=== PATIENT | male | born 1950 | race African-American/Black ===

== ENCOUNTER 2020-10-26 04:58 | Inpatient (IN) ==
[2020-10-26] MEDS ORDERED: Naloxone 0.4 MG/ML INJ IVP PRN (09:41)
[2020-10-26] MEDS ORDERED: *HR* Dextrose 50 % in Water (Vial) 50 ML VIAL IVP PRN (09:45)
[2020-10-26] MEDS ORDERED: Dextrose Gel 15 GM/37.5 ML TUBE PO PRN ×2 (09:45)
[2020-10-26] MEDS ORDERED: D5% in Water 1,000 ML IVC PRN (09:45)
[2020-10-26 10:51] LABS: Eosinophils % 0.4 %
[2020-10-26 10:53] LABS: Hematocrit 16.5 % (37.5-50.1); Lymphocytes # 0.7 K/mcL (0.6-4.6); Lymphocytes % 13.5 %; Mean Corpuscular HGB Conc 31.5 g/dL (31.6-35.5); Mean Corpuscular Hemoglobin 23.1 pg (28.0-33.3); Mean Corpuscular Volume 73.3 fL (83.0-100.0); Mean Platelet Volume 8.7 fL (9.4-12.4); Monocytes # 0.4 K/mcL (0.0-1.3); Monocytes % 7.1 %; Neutrophils # 4.2 K/mcL (1.6-8.9); Nucleated Red Blood Cells 0.9 /100 WBC (0); Platelet Count 141 K/mcL (140-400); Red Blood Count 2.25 M/mcL (4.19-5.50); Red Cell Distribution Width 24.6 % (11.5-14.5); White Blood Count 5.5 K/mcL (4.3-11.1)
[2020-10-26 11:05] LABS: Hemoglobin 5.2 g/dL (12.9-16.9)
[2020-10-26 11:09] LABS: Calcium 7.9 mg/dL (8.6-10.3); Potassium 3.6 mEq/L (3.5-5.1)
[2020-10-26 11:13] LABS: Anisocytosis 2+ (Not Present); Hypochromasia Present (Not Present); Microcytosis Present (Not Present); Platelet Estimate Normal (Normal)
[2020-10-26 11:14] LABS: Poikilocytosis 1+ (Not Present)
[2020-10-26] MEDS: *HR* OxyCODONE Immed Rel 5 MG TABLET PO PRN ×2 (11:34→20:10)
[2020-10-26] MEDS: Insulin LISPRO 300 UNITS/3 ML VIAL SUBQ SCH ×3 (12:33→21:28)
[2020-10-26] MEDS: Nicotine 21 MG PATCH.TD24 TD SCH (13:16)
[2020-10-26 13:51] LABS: Immature Reticulocyte % 30.1 % (11.0-38.0); Retculocyte # 0.02 M/mcL (0.05-0.10); Reticulocyte % 0.8 % (1.6-2.8)
[2020-10-26 14:11] LABS: % Iron Saturation 32 % (20-55); Iron 39 mcg/dL (65-175); Lactate Dehydrogenase 298 Units/L (140-271); Transferrin 86 mg/dL (203-362)
[2020-10-26 14:31] LABS: Ferritin > 1500 ng/mL (20-250)
[2020-10-26 14:34] LABS: Folate 5.2 ng/mL (3.0-16.0)
[2020-10-26] MEDS ORDERED: Cyanocobalamin (B-12) 1,000 MCG/ML VIAL IM ONE (18:12)
[2020-10-26 19:13] LABS: Albumin 3.3 g/dL (3.5-5.7); Bilirubin,Direct 0.5 mg/dL (0.0-0.2); Bilirubin,Indirect 0.6 mg/dL (0.0-1.0); Bilirubin,Total 1.1 mg/dL (0.3-1.0); Globulin 3.4 g/dL (2.4-3.5); Total Protein 6.7 g/dL (6.4-8.9)
[2020-10-27] MEDS: *HR* OxyCODONE Immed Rel 5 MG TABLET PO PRN ×2 (02:10→17:18)
[2020-10-27 03:25] LABS: Basophils % 0.2 %; Eosinophils % 0.6 %; Hematocrit 21.1 % (37.5-50.1); Immature Granulocytes % 1.6 % (0-4); Lymphocytes # 0.7 K/mcL (0.6-4.6); Lymphocytes % 14.1 %; Mean Corpuscular HGB Conc 32.2 g/dL (31.6-35.5); Mean Corpuscular Hemoglobin 24.7 pg (28.0-33.3); Mean Corpuscular Volume 76.7 fL (83.0-100.0); Mean Platelet Volume 8.8 fL (9.4-12.4); Monocytes # 0.4 K/mcL (0.0-1.3); Monocytes % 7.2 %; Neutrophils # 3.9 K/mcL (1.6-8.9); Nucleated Red Blood Cells 1.6 /100 WBC (0); Platelet Count 126 K/mcL (140-400); Red Blood Count 2.75 M/mcL (4.19-5.50); Red Cell Distribution Width 23.7 % (11.5-14.5); Segmented Neutrophils % 76.3 %; White Blood Count 5.1 K/mcL (4.3-11.1)
[2020-10-27 03:44] LABS: BUN/Creatinine Ratio 25 (6-26); Blood Urea Nitrogen 32 mg/dL (8-23); Calcium 7.7 mg/dL (8.6-10.3); Carbon Dioxide 16 mEq/L (23-29); Chloride 108 mEq/L (98-107); Glucose 83 mg/dL (70-105); Osmolality,Calculated 286 (280-300); Potassium 3.6 mEq/L (3.5-5.1); Sodium 135 mEq/L (136-145); eGFR For African Americans > 60 (> 60); eGFR For Non-African Americans 54 (> 60)
[2020-10-27 03:45] LABS: Hemoglobin 6.8 g/dL (12.9-16.9)
[2020-10-27 04:13] LABS: Anisocytosis 1+ (Not Present); Large Platelets Present (Not Present); Platelet Estimate Slight Decrease (Normal); Poikilocytosis 1+ (Not Present)
[2020-10-27 05:31] LABS: Adenovirus Not Detected (Not Detect); Bordetella Pertussis Not Detected (Not Detect); Chlamydophila pneumoniae Not Detected (Not Detect); Coronavirus 229E Not Detected (Not Detect); Coronavirus HKU1 Not Detected (Not Detect); Coronavirus NL63 Not Detected (Not Detect); Coronavirus OC43 Not Detected (Not Detect); Human Metapneumovirus Not Detected (Not Detect); Human Rhinovirus/Enterovirus Not Detected (Not Detect); Influenza A Subtype 2009 H1 Not Detected (Not Detect); Influenza B Not Detected (Not Detect); Mycoplasma pneumoniae Not Detected (Not Detect); Parainfluenza Virus 1 Not Detected (Not Detect); Parainfluenza Virus 2 Not Detected (Not Detect); Parainfluenza Virus 3 Not Detected (Not Detect); Parainfluenza Virus 4 Not Detected (Not Detect); Respiratory Syncytial Virus Not Detected (Not Detect); SARS-CoV-2 Not Detected (Not Detect)
[2020-10-27] MEDS: Insulin LISPRO 300 UNITS/3 ML VIAL SUBQ SCH ×4 (07:39→21:33)
[2020-10-27] MEDS ORDERED: 0.9 % Sodium Chloride 250 ML ONE (09:44)
[2020-10-27] MEDS: Nicotine 21 MG PATCH.TD24 TD SCH (09:47)
[2020-10-27] MEDS: Pantoprazole 40 MG VIAL IVP SCH ×2 (09:47→17:01)
[2020-10-27] MEDS ORDERED: Isovue-370 500 ML BOTTLE IVP ONE (11:11)
[2020-10-27] MEDS ORDERED: *HR* Vasopressin 20 UNIT/ML VIAL ONE (15:01)
[2020-10-27 15:14] LABS: Hematocrit 23.3 % (37.5-50.1); Hemoglobin 7.4 g/dL (12.9-16.9)
[2020-10-27 15:19] LABS: INR 1.5
[2020-10-27 15:21] LABS: Activated Partial Thrombo Time 28.5 Seconds (26.0-36.0)
[2020-10-27] MEDS: Cyanocobalamin (B-12) 1,000 MCG/ML VIAL IM SCH (15:57)
[2020-10-27] MEDS ORDERED: *HR* OxyCODONE Immed Rel 5 MG TABLET PO ONE (20:23)
[2020-10-28] MEDS: *HR* OxyCODONE Immed Rel 5 MG TABLET PO PRN ×3 (03:01→19:56)
[2020-10-28 04:26] LABS: Basophils % 0.2 %; Eosinophils % 0.8 %; Hematocrit 22.8 % (37.5-50.1); Hemoglobin 7.4 g/dL (12.9-16.9); Immature Granulocytes % 1.8 % (0-4); Lymphocytes # 0.6 K/mcL (0.6-4.6); Lymphocytes % 11.4 %; Mean Corpuscular HGB Conc 32.5 g/dL (31.6-35.5); Mean Corpuscular Hemoglobin 25.2 pg (28.0-33.3); Mean Corpuscular Volume 77.6 fL (83.0-100.0); Mean Platelet Volume 8.5 fL (9.4-12.4); Monocytes # 0.3 K/mcL (0.0-1.3); Monocytes % 6.8 %; Platelet Count 110 K/mcL (140-400); Red Blood Count 2.94 M/mcL (4.19-5.50); Red Cell Distribution Width 23.3 % (11.5-14.5)
[2020-10-28 04:32] LABS: Anisocytosis 1+ (Not Present); Platelet Estimate Decreased (Normal)
[2020-10-28 04:44] LABS: BUN/Creatinine Ratio 24 (6-26); Blood Urea Nitrogen 20 mg/dL (8-23); Calcium 7.7 mg/dL (8.6-10.3); Carbon Dioxide 16 mEq/L (23-29); Chloride 107 mEq/L (98-107); Glucose 171 mg/dL (70-105); Magnesium 2.7 mg/dL (1.6-2.6); Osmolality,Calculated 287 (280-300); Phosphorous 1.5 mg/dL (2.7-4.5); Potassium 3.6 mEq/L (3.5-5.1); Sodium 135 mEq/L (136-145); eGFR For African Americans > 60 (> 60); eGFR For Non-African Americans > 60 (> 60)
[2020-10-28] MEDS: Pantoprazole 40 MG VIAL IVP SCH ×2 (06:14→17:36)
[2020-10-28] MEDS: Insulin LISPRO 300 UNITS/3 ML VIAL SUBQ SCH ×4 (08:36→22:55)
[2020-10-28] MEDS ORDERED: Potassium Phosphate 44 MEQ in 0.9 % Sodium Chloride 250 ML IVPB ONE (08:52)
[2020-10-28] MEDS: Nicotine 21 MG PATCH.TD24 TD SCH (09:23)
[2020-10-28] MEDS: Iron Sucrose Complex 400 MG in 0.9 % Sodium Chloride 250 ML IVPB SCH (09:34)
[2020-10-28] MEDS ORDERED: *HR* OxyCODONE Immed Rel 5 MG TABLET PO PRN (13:13)
[2020-10-28] MEDS ORDERED: Lidocaine -MPF 2% 2 ML VIAL ONE (14:25)
[2020-10-28] MEDS: Cyanocobalamin (B-12) 1,000 MCG/ML VIAL IM SCH (17:29)
[2020-10-29 04:33] LABS: Hematocrit 23.1 % (37.5-50.1); Hemoglobin 7.4 g/dL (12.9-16.9); Platelet Count 119 K/mcL (140-400); Red Blood Count 2.96 M/mcL (4.19-5.50); Red Cell Distribution Width 23.3 % (11.5-14.5); White Blood Count 4.8 K/mcL (4.3-11.1)
[2020-10-29 04:43] LABS: BUN/Creatinine Ratio 20 (6-26); Blood Urea Nitrogen 16 mg/dL (8-23); Calcium 7.2 mg/dL (8.6-10.3); Carbon Dioxide 19 mEq/L (23-29); Chloride 110 mEq/L (98-107); Glucose 147 mg/dL (70-105); Osmolality,Calculated 292 (280-300); Phosphorous 1.7 mg/dL (2.7-4.5); Potassium 3.6 mEq/L (3.5-5.1); Sodium 139 mEq/L (136-145); eGFR For African Americans > 60 (> 60); eGFR For Non-African Americans > 60 (> 60)
[2020-10-29] MEDS: Pantoprazole 40 MG VIAL IVP SCH (05:00)
[2020-10-29 06:36] VITALS: BP 124/74
[2020-10-29] MEDS: Insulin LISPRO 300 UNITS/3 ML VIAL SUBQ SCH ×2 (07:42→11:48)
[2020-10-29] MEDS: Nicotine 21 MG PATCH.TD24 TD SCH (07:49)
[2020-10-29] MEDS: Iron Sucrose Complex 400 MG in 0.9 % Sodium Chloride 250 ML IVPB SCH (07:54)
[2020-10-29] MEDS ORDERED: Potassium Phosphate 44 MEQ in 0.9 % Sodium Chloride 250 ML IVPB ONE (08:14)
[2020-10-29] MEDS ORDERED: lisinopriL 10 MG TABLET PO SCH (09:00)
[2020-10-29] MEDS ORDERED: Aspirin Enteric Coated 81 MG Tablet PO SCH (09:00)
[2020-10-29] MEDS: *HR* OxyCODONE Immed Rel 5 MG TABLET PO PRN (12:38)
== END 2020-10-29 15:13 | disposition home or self-care (01) | DRG 378 ==
LOC: 3ANU → SUATTDRO 16:44
PROVIDERS: ADMIT Student in an Organized Health Care Education/Training Program; ATTEND Internal Medicine
PROC: ENDOEBX (2020-10-27 14:30)

== ENCOUNTER 2020-11-14 15:45 | Inpatient (IN) ==
[2020-11-14] MEDS ORDERED: 0.9 % Sodium Chloride 1,000 ML IVC ONE ×2 (15:52→16:56)
[2020-11-14 16:23] LABS: Eosinophils # 0.1 K/mcL (0.0-0.6); Hematocrit 23.9 % (37.5-50.1); Hemoglobin 7.7 g/dL (12.9-16.9); Mean Corpuscular HGB Conc 32.2 g/dL (31.6-35.5); Mean Corpuscular Hemoglobin 24.6 pg (28.0-33.3); Mean Corpuscular Volume 76.4 fL (83.0-100.0); Mean Platelet Volume 8.3 fL (9.4-12.4); Platelet Count 109 K/mcL (140-400); Red Blood Count 3.13 M/mcL (4.19-5.50); Red Cell Distribution Width 23.2 % (11.5-14.5); White Blood Count 6.8 K/mcL (4.3-11.1)
[2020-11-14 16:43] LABS: Alanine Aminotransferase 10 Units/L (7-52); Albumin 3.7 g/dL (3.5-5.7); Alkaline Phosphatase 265 Units/L (34-104); Aspartate Amino Transferase 19 Units/L (13-39); BUN/Creatinine Ratio 16 (6-26); Bilirubin,Direct 0.4 mg/dL (0.0-0.2); Bilirubin,Indirect 0.5 mg/dL (0.0-1.0); Bilirubin,Total 0.9 mg/dL (0.3-1.0); Blood Urea Nitrogen 12 mg/dL (8-23); Calcium 8.5 mg/dL (8.6-10.3); Carbon Dioxide 18 mEq/L (23-29); Chloride 105 mEq/L (98-107); Globulin 3.7 g/dL (2.4-3.5); Glucose 64 mg/dL (70-105); Magnesium 1.9 mg/dL (1.6-2.6); Osmolality,Calculated 280 (280-300); Potassium 3.4 mEq/L (3.5-5.1); Sodium 136 mEq/L (136-145); Total Protein 7.4 g/dL (6.4-8.9); eGFR For African Americans > 60 (> 60); eGFR For Non-African Americans > 60 (> 60)
[2020-11-14 16:51] LABS: Troponin I < 0.03 ng/mL (< 0.04)
[2020-11-14] MEDS ORDERED: Ondansetron 4 MG/2 ML VIAL IVP ONE ×2 (16:52→19:10)
[2020-11-14 17:05] LABS: Basophils # 0.1 K/mcL (0.0-0.2); Lymphocytes # 1.1 K/mcL (0.6-4.6); Monocytes # 0.2 K/mcL (0.0-1.3); Neutrophils # 5.2 K/mcL (1.6-8.9)
[2020-11-14 17:06] LABS: Anisocytosis 3+ (Not Present); Hypochromasia Present (Not Present); Platelet Estimate Decreased (Normal); Polychromasia 1+ (Not Present); Reactive Lymphocytes Present (Not Present)
[2020-11-14 17:11] LABS: Bilirubin,Urine Negative (Negative); Blood,Urine Negative (Negative); Clarity,Urine Clear (Clear); Color,Urine Yellow (Yellow); Glucose,Urine (UA) Normal (Normal); Ketones,Urine Negative (Negative); Leukocyte Esterase,Urine Negative (Negative); Nitrite,Urine Negative (Negative); Protein,Urine Trace mg/dL (Neg-Trace); Specific Gravity,Urine 1.026 (1.010-1.025)
[2020-11-14] MEDS ORDERED: *HR* Dextrose 50 % in Water (Vial) 50 ML VIAL IVP STA (17:57)
[2020-11-14] MEDS ORDERED: 0.9 % Sodium Chloride 1,000 ML IVC SCH (19:00)
[2020-11-14] MEDS ORDERED: D5% in 0.9% NACL 1,000 ML IVC SCH (19:15)
[2020-11-14] MEDS ORDERED: *HR* OxyCODONE Immed Rel 5 MG TABLET PO ONE (19:45)
[2020-11-14] MEDS ORDERED: Naloxone 0.4 MG/ML INJ IVP PRN (20:37)
[2020-11-14] MEDS ORDERED: Ondansetron 4 MG/2 ML VIAL IVP PRN (20:37)
[2020-11-14] MEDS ORDERED: Potassium Chloride 10 MEQ in D5% in 0.9% NACL 1,000 ML IVC SCH ×2 (20:45→22:15)
[2020-11-14 21:07] LABS: Hematocrit 20.7 % (37.5-50.1); Hemoglobin 6.5 g/dL (12.9-16.9)
[2020-11-14] MEDS ORDERED: 0.9 % Sodium Chloride 250 ML IVC SCH (22:15)
[2020-11-14] MEDS: Pantoprazole 40 MG VIAL IVP SCH (22:51)
[2020-11-15] MEDS: Pantoprazole 40 MG VIAL IVP SCH ×2 (04:47→17:55)
[2020-11-15] MEDS: Sucralfate 1 GM TABLET PO SCH ×2 (07:55→17:55)
[2020-11-15] MEDS: Cyanocobalamin (B-12) 1,000 MCG TABLET PO SCH (07:55)
[2020-11-15 09:53] LABS: Hematocrit 22.4 % (37.5-50.1); Hemoglobin 7.2 g/dL (12.9-16.9); Immature Platelets 2.6 % (1.1-6.1); Mean Corpuscular HGB Conc 32.1 g/dL (31.6-35.5); Mean Corpuscular Hemoglobin 25.2 pg (28.0-33.3); Mean Corpuscular Volume 78.3 fL (83.0-100.0); Mean Platelet Volume 8.6 fL (9.4-12.4); Red Blood Count 2.86 M/mcL (4.19-5.50); Red Cell Distribution Width 22.8 % (11.5-14.5); White Blood Count 5.2 K/mcL (4.3-11.1)
[2020-11-15 11:11] LABS: Alanine Aminotransferase 8 Units/L (7-52); Albumin 3.2 g/dL (3.5-5.7); Alkaline Phosphatase 232 Units/L (34-104); Aspartate Amino Transferase 19 Units/L (13-39); BUN/Creatinine Ratio 12 (6-26); Bilirubin,Total 0.7 mg/dL (0.3-1.0); Blood Urea Nitrogen 8 mg/dL (8-23); Calcium 7.7 mg/dL (8.6-10.3); Carbon Dioxide 18 mEq/L (23-29); Chloride 109 mEq/L (98-107); Globulin 3.2 g/dL (2.4-3.5); Glucose 110 mg/dL (70-105); Osmolality,Calculated 283 (280-300); Potassium 3.5 mEq/L (3.5-5.1); Sodium 137 mEq/L (136-145); Total Protein 6.4 g/dL (6.4-8.9); eGFR For African Americans > 60 (> 60); eGFR For Non-African Americans > 60 (> 60)
[2020-11-15] MEDS ORDERED: 0.9 % Sodium Chloride 250 ML IVC SCH (12:30)
[2020-11-15] MEDS ORDERED: *HR* OxyCODONE Immed Rel 5 MG TABLET PO PRN (12:34)
[2020-11-15] MEDS ORDERED: *HR* OxyCODONE/APAP 10/325 TABLET PO PRN (12:40)
[2020-11-15] MEDS ORDERED: *HR* OxyCODONE/APAP 5/325 TABLET PO PRN (12:40)
[2020-11-15] MEDS ORDERED: 0.9 % Sodium Chloride 250 ML ONE (14:09)
[2020-11-15] MEDS: ENZALUTAMIDE 40 MG PO SCH (14:17)
[2020-11-15 19:38] LABS: Hematocrit 24.4 % (37.5-50.1); Hemoglobin 7.9 g/dL (12.9-16.9)
[2020-11-15] MEDS: Melatonin 3 MG TABLET PO SCH (20:18)
[2020-11-15] MEDS: *HR* OxyCODONE Immed Rel 5 MG TABLET PO PRN (20:47)
[2020-11-16 02:12] LABS: BUN/Creatinine Ratio 10 (6-26); Blood Urea Nitrogen 7 mg/dL (8-23); Calcium 7.8 mg/dL (8.6-10.3); Carbon Dioxide 17 mEq/L (23-29); Chloride 108 mEq/L (98-107); Glucose 118 mg/dL (70-105); Magnesium 1.9 mg/dL (1.6-2.6); Osmolality,Calculated 279 (280-300); Phosphorous 1.5 mg/dL (2.7-4.5); Potassium 3.4 mEq/L (3.5-5.1); Sodium 135 mEq/L (136-145); eGFR For African Americans > 60 (> 60); eGFR For Non-African Americans > 60 (> 60)
[2020-11-16] MEDS: Pantoprazole 40 MG VIAL IVP SCH ×2 (05:00→18:19)
[2020-11-16] MEDS ORDERED: Potassium Phosphate 44 MEQ in 0.9 % Sodium Chloride 250 ML IVPB ONE (07:40)
[2020-11-16] MEDS: lisinopriL 10 MG TABLET PO SCH (07:52)
[2020-11-16] MEDS: Sucralfate 1 GM TABLET PO SCH ×2 (07:53→16:14)
[2020-11-16] MEDS: Cyanocobalamin (B-12) 1,000 MCG TABLET PO SCH (07:53)
[2020-11-16] MEDS: *HR* OxyCODONE Immed Rel 5 MG TABLET PO PRN ×2 (09:00→21:23)
[2020-11-16 09:48] LABS: Hematocrit 25.2 % (37.5-50.1); Mean Corpuscular HGB Conc 31.7 g/dL (31.6-35.5); Mean Corpuscular Hemoglobin 25.5 pg (28.0-33.3); Mean Corpuscular Volume 80.3 fL (83.0-100.0); Mean Platelet Volume 8.5 fL (9.4-12.4); Red Blood Count 3.14 M/mcL (4.19-5.50); Red Cell Distribution Width 22.5 % (11.5-14.5)
[2020-11-16 09:50] LABS: Platelet Count 94 K/mcL (140-400)
[2020-11-16] MEDS: carvediloL 6.25 MG TABLET PO SCH ×2 (10:03→16:14)
[2020-11-16 10:50] LABS: Iron 52 mcg/dL (65-175)
[2020-11-16 11:23] LABS: Ferritin > 1500 ng/mL (20-250)
[2020-11-16 11:27] LABS: Folate 5.2 ng/mL (3.0-16.0)
[2020-11-16] MEDS: ENZALUTAMIDE 40 MG PO SCH (12:28)
[2020-11-16] MEDS ORDERED: ALPRAZolam 0.25 MG TABLET PO PRN (14:48)
[2020-11-16] MEDS: Melatonin 3 MG TABLET PO SCH (21:22)
[2020-11-17] MEDS: Pantoprazole 40 MG VIAL IVP SCH (05:27)
[2020-11-17 07:45] LABS: Hematocrit 25.5 % (37.5-50.1); Hemoglobin 8.3 g/dL (12.9-16.9)
[2020-11-17] MEDS: Sucralfate 1 GM TABLET PO SCH (07:58)
[2020-11-17] MEDS: Cyanocobalamin (B-12) 1,000 MCG TABLET PO SCH (07:58)
[2020-11-17] MEDS: lisinopriL 10 MG TABLET PO SCH (07:58)
[2020-11-17] MEDS: carvediloL 6.25 MG TABLET PO SCH (07:58)
[2020-11-17] MEDS ORDERED: *HR* Propofol 200 MG/20 ML VIAL IVP ONE (12:03)
[2020-11-17] MEDS ORDERED: Lidocaine -MPF 2% 2 ML VIAL ONE (12:04)
[2020-11-17 15:37] VITALS: BP 157/76
== END 2020-11-17 16:34 | disposition home or self-care (01) | DRG 812 ==
LOC: 3BNU 15:45 → EMEROOARM 15:45 → 2ANU 20:37 → SUATTDRO 11-15 12:25
PROVIDERS: ADMIT Family Medicine; ATTEND Internal Medicine

== ENCOUNTER 2020-12-22 16:45 | Inpatient (IN) ==
[2020-12-22] MEDS ORDERED: *HR* Dextrose 50 % in Water (Vial) 50 ML VIAL IVP ONE ×2 (17:36→20:20)
[2020-12-22 18:07] LABS: Red Blood Count 2.51 M/mcL (4.19-5.50)
[2020-12-22 18:08] LABS: Hematocrit 20.3 % (37.5-50.1); Hemoglobin 6.4 g/dL (12.9-16.9); Mean Corpuscular HGB Conc 31.5 g/dL (31.6-35.5); Mean Corpuscular Hemoglobin 25.5 pg (28.0-33.3); Mean Corpuscular Volume 80.9 fL (83.0-100.0); Nucleated Red Blood Cells 1.4 /100 WBC (0); Red Cell Distribution Width 20.6 % (11.5-14.5); White Blood Count 4.4 K/mcL (4.3-11.1)
[2020-12-22 18:11] LABS: Platelet Count 82 K/mcL (140-400)
[2020-12-22 18:17] LABS: BUN/Creatinine Ratio 23 (6-26); Blood Urea Nitrogen 18 mg/dL (8-23); Calcium 8.4 mg/dL (8.6-10.3); Carbon Dioxide 22 mEq/L (23-29); Chloride 105 mEq/L (98-107); Glucose 55 mg/dL (70-105); Magnesium 2.1 mg/dL (1.6-2.6); Osmolality,Calculated 283 (280-300); Potassium 3.1 mEq/L (3.5-5.1); Sodium 137 mEq/L (136-145); eGFR For African Americans > 60 (> 60); eGFR For Non-African Americans > 60 (> 60)
[2020-12-22 18:22] LABS: Bilirubin,Urine Negative (Negative); Blood,Urine Negative (Negative); Clarity,Urine Clear (Clear); Color,Urine Yellow (Yellow); Glucose,Urine (UA) Normal (Normal); Ketones,Urine Negative (Negative); Leukocyte Esterase,Urine Negative (Negative); Nitrite,Urine Negative (Negative); PH,Urine 5.5 pH Units (5.0-8.0); Protein,Urine Trace mg/dL (Neg-Trace); Specific Gravity,Urine 1.027 (1.010-1.025)
[2020-12-22] MEDS ORDERED: Potassium Chloride 40 MEQ, Lidocaine 1% 2 ML in 0.9 % Sodium Chloride 500 ML IVPB ONE (18:36)
[2020-12-22 18:39] LABS: Anisocytosis 1+ (Not Present); Lymphocytes # 0.6 K/mcL (0.6-4.6); Monocytes # 0.1 K/mcL (0.0-1.3); Neutrophils # 3.5 K/mcL (1.6-8.9); Platelet Estimate Slight Decrease (Normal); Smudge Cells Present (Not Present); Toxic Granulation Present (Not Present)
[2020-12-22] MEDS: D5% in 0.9% NACL 1,000 ML IVC SCH (20:36)
[2020-12-22] MEDS ORDERED: *HR* OxyCODONE Immed Rel 5 MG TABLET PO PRN (21:31)
[2020-12-22] MEDS ORDERED: Melatonin 3 MG TABLET PO PRN (21:31)
[2020-12-22] MEDS ORDERED: Ondansetron 4 MG/2 ML VIAL IVP PRN (21:31)
[2020-12-22] MEDS ORDERED: Acetaminophen 325 MG TABLET PO PRN (21:31)
[2020-12-22] MEDS ORDERED: *HR* Promethazine 25 MG/ML VIAL IM PRN (21:31)
[2020-12-22] MEDS ORDERED: Naloxone 0.4 MG/ML INJ IVP PRN (21:31)
[2020-12-22] MEDS ORDERED: Dextrose Gel 15 GM/37.5 ML TUBE PO PRN ×2 (21:35)
[2020-12-22] MEDS ORDERED: *HR* Dextrose 50 % in Water (Vial) 50 ML VIAL IVP PRN (21:35)
[2020-12-22] MEDS ORDERED: D5% in Water 1,000 ML IVC PRN (21:35)
[2020-12-22] MEDS ORDERED: 0.9 % Sodium Chloride 500 ML IVC ONE (22:37)
[2020-12-23] MEDS: *HR* OxyCODONE Immed Rel 5 MG TABLET PO PRN ×2 (01:06→20:36)
[2020-12-23] MEDS ORDERED: ALPRAZolam 1 MG TABLET PO PRN ×2 (01:30→15:52)
[2020-12-23 04:52] LABS: Hematocrit 17.3 % (37.5-50.1); Mean Platelet Volume 8.8 fL (9.4-12.4)
[2020-12-23 04:53] LABS: Immature Platelets 2.6 % (1.1-6.1); Mean Corpuscular HGB Conc 31.2 g/dL (31.6-35.5); Mean Corpuscular Hemoglobin 25.1 pg (28.0-33.3); Mean Corpuscular Volume 80.5 fL (83.0-100.0); Monocytes # 0.2 K/mcL (0.0-1.3); Red Blood Count 2.15 M/mcL (4.19-5.50); Red Cell Distribution Width 20.8 % (11.5-14.5); White Blood Count 4.1 K/mcL (4.3-11.1)
[2020-12-23 05:00] LABS: INR 1.5; Prothrombin Time 17.6 Seconds (9.4-12.1)
[2020-12-23 05:01] LABS: Hemoglobin 5.4 g/dL (12.9-16.9); Platelet Count 69 K/mcL (140-400)
[2020-12-23] MEDS ORDERED: 0.9 % Sodium Chloride 250 ML ONE (05:07)
[2020-12-23 05:18] LABS: BUN/Creatinine Ratio 20 (6-26); Blood Urea Nitrogen 12 mg/dL (8-23); Calcium 7.6 mg/dL (8.6-10.3); Carbon Dioxide 19 mEq/L (23-29); Chloride 110 mEq/L (98-107); Glucose 74 mg/dL (70-105); Osmolality,Calculated 282 (280-300); Potassium 3.9 mEq/L (3.5-5.1); Sodium 137 mEq/L (136-145); eGFR For African Americans > 60 (> 60); eGFR For Non-African Americans > 60 (> 60)
[2020-12-23 05:25] LABS: Hypochromasia Present (Not Present); Lymphocytes # 1.1 K/mcL (0.6-4.6); Neutrophils # 2.9 K/mcL (1.6-8.9)
[2020-12-23 05:26] LABS: Anisocytosis 1+ (Not Present); Platelet Estimate Decreased (Normal); Poikilocytosis 1+ (Not Present)
[2020-12-23] MEDS ORDERED: 0.9 % Sodium Chloride 250 ML IVC SCH (06:00)
[2020-12-23] MEDS: Cyanocobalamin (B-12) 1,000 MCG TABLET PO SCH (09:01)
[2020-12-23] MEDS: lisinopriL 10 MG TABLET PO SCH (09:02)
[2020-12-23] MEDS: carvediloL 6.25 MG TABLET PO SCH ×2 (09:03→18:48)
[2020-12-23] MEDS: Calcium Gluconate 1gm/50mL 1 GM/50 ML BAG IVPB SCH ×3 (09:04→11:41)
[2020-12-23] MEDS: Aspirin Enteric Coated 81 MG Tablet PO SCH (09:04)
[2020-12-23 10:47] LABS: Hemoglobin 6.8 g/dL (12.9-16.9)
[2020-12-23] MEDS ORDERED: Isovue-370 500 ML BOTTLE IVP ONE (11:25)
[2020-12-23 11:29] LABS: % Iron Saturation 88 % (20-55); Iron 103 mcg/dL (65-175); Transferrin 84 mg/dL (203-362)
[2020-12-23 12:34] LABS: Folate 3.8 ng/mL (3.0-16.0)
[2020-12-23 13:16] LABS: Ferritin > 1500 ng/mL (20-250)
[2020-12-23] MEDS: D5% in 0.9% NACL 1,000 ML IVC SCH (13:49)
[2020-12-23 18:31] LABS: Hematocrit 25.2 % (37.5-50.1)
[2020-12-23] MEDS: Megestrol Acetate 400 MG/10 ML UDC PO SCH (20:20)
[2020-12-23] MEDS: Hydrocortisone 10 MG TABLET PO SCH (20:26)
[2020-12-24 06:38] LABS: Basophils % 0.8 %; Eosinophils # 0.1 K/mcL (0.0-0.6); Eosinophils % 1.5 %; Hematocrit 23.3 % (37.5-50.1); Hemoglobin 7.7 g/dL (12.9-16.9); Immature Granulocytes % 8.2 % (0-4); Immature Platelets 1.4 % (1.1-6.1); Lymphocytes # 0.8 K/mcL (0.6-4.6); Mean Corpuscular Volume 84.7 fL (83.0-100.0); Mean Platelet Volume 8.2 fL (9.4-12.4); Monocytes # 0.2 K/mcL (0.0-1.3); Monocytes % 5.9 %; Neutrophils # 2.5 K/mcL (1.6-8.9); Nucleated Red Blood Cells 1.5 /100 WBC (0); Red Blood Count 2.75 M/mcL (4.19-5.50); Red Cell Distribution Width 18.8 % (11.5-14.5); Segmented Neutrophils % 63.6 %; White Blood Count 3.9 K/mcL (4.3-11.1)
[2020-12-24 06:39] LABS: Platelet Count 67 K/mcL (140-400)
[2020-12-24 06:57] LABS: Platelet Estimate Decreased (Normal); Reactive Lymphocytes Present (Not Present)
[2020-12-24 06:58] LABS: BUN/Creatinine Ratio 16 (6-26); Blood Urea Nitrogen 9 mg/dL (8-23); Calcium 8.1 mg/dL (8.6-10.3); Carbon Dioxide 20 mEq/L (23-29); Chloride 110 mEq/L (98-107); Glucose 118 mg/dL (70-105); Magnesium 1.9 mg/dL (1.6-2.6); Osmolality,Calculated 284 (280-300); Phosphorous 1.4 mg/dL (2.7-4.5); Potassium 3.9 mEq/L (3.5-5.1); Sodium 137 mEq/L (136-145); eGFR For African Americans > 60 (> 60); eGFR For Non-African Americans > 60 (> 60)
[2020-12-24] MEDS: Aspirin Enteric Coated 81 MG Tablet PO SCH (08:43)
[2020-12-24] MEDS ORDERED: Multivit/Ca/Min/Fe/FA 1 TAB TABLET PO SCH (09:00)
[2020-12-24] MEDS: lisinopriL 10 MG TABLET PO SCH (09:19)
[2020-12-24] MEDS: Megestrol Acetate 400 MG/10 ML UDC PO SCH (09:19)
[2020-12-24] MEDS: Cyanocobalamin (B-12) 1,000 MCG TABLET PO SCH (09:20)
[2020-12-24] MEDS: carvediloL 6.25 MG TABLET PO SCH (09:21)
[2020-12-24] MEDS: Hydrocortisone 10 MG TABLET PO SCH (09:21)
[2020-12-24] MEDS: Calcium Gluconate 1gm/50mL 1 GM/50 ML BAG IVPB SCH ×2 (09:31→11:19)
[2020-12-24 10:14] LABS: Hematocrit 23.3 % (37.5-50.1); Hemoglobin 7.7 g/dL (12.9-16.9)
[2020-12-24 10:58] LABS: Estimated Average Glucose 117 mg/dl; Hemoglobin A1C 5.7 %
[2020-12-24 11:12] VITALS: BP 133/68
[2020-12-24] MEDS: D5% in 0.9% NACL 1,000 ML IVC SCH (11:22)
== END 2020-12-24 15:17 | disposition home health service (06) | DRG 638 ==
LOC: 3ANU 16:45 → EMEROOARM 16:45 → SUATTDRO 19:22 → 3ANU 19:54
PROVIDERS: ADMIT Internal Medicine; ATTEND Internal Medicine